=== PATIENT | female | born 1995 | race Caucasian/White ===

== ENCOUNTER 2019-10-05 20:53 | Emergency (ER) | payer SELFPAY ==
[~2019-10-05] VITALS: Ht 172.7 cm; Wt 72.1 kg
[2019-10-05 20:58] VITALS: BP 115/72
--- NOTE | 2019-10-05 21:24 | NUR ---
24 Y/O FEMALE PRESENTS TO ER WITH C/O OF CHEST PAIN S/P TAKING SECOND DOSE OF TOPOMAX X 45 MIN. PT STATES SHE STARTED TOPOMAX THIS MORNING AND HAD HER SECOND DOSE AROUND 1900 AFTER THAT SHE BEGAN TO HAVE CHEST PAIN, RIGHT SIDE FACE, AND LEG TINGLING, AND NUMBNESS, WITH SOME DIZZINESS, AND LIGHTHEADEDNESS. UPON ASSESSMENT 0/10 CHEST PAIN, VSS, EKG IS NSR, R/R EQUAL, AND UNLABORED, CAP REFILL <3 SEC, BILATERAL UPPER, AND LOWER EXTREMITY PULSES PALPATED, STRONG, AND REGULAR. PT DENIES SYNCOPE, HEADACHE, VISION CHANGES, FEVER, NAUSEA, VOMITING, DIARRHEA. LMP 09/21/19. SIDE RAIL X1, BED IN LOW POSITION, WILL CONTINUE TO MONITOR. ALLERGY: PENICILLIN, CLINDAMYCIN, COMPAZINE PMH: MIGRAINES
[2019-10-05 22:18] VITALS: BP 115/72
--- NOTE | 2019-10-05 22:18 | NUR ---
Patient discharged BY DR. RDZ with v/s stable. Written and verbal after care instructions given and explained. Patient verbalized understanding. Ambulatory with steady gait. All questions addressed prior to discharge BY DR. RDZ. Advised to follow up with PMD.
== END 2019-10-05 22:18 | disposition home or self-care (01) ==
LOC: MED 20:53
DX: F41.9 Anxiety disorder, unspecified (principal); R51 Headache; R20.2 Paresthesia of skin; Z88.0 Allergy status to penicillin; Z88.1 Allergy status to other antibiotic agents; Z88.8 Allergy status to other drugs, medicaments and biological substances
CPT/HCPCS: 81002; 81025; 93005; 99283

== ENCOUNTER 2019-10-13 20:49 | Emergency (ER) | payer SELFPAY ==
[~2019-10-13] VITALS: Ht 172.7 cm; Wt 69.9 kg
[2019-10-13 20:55] VITALS: BP 111/69
--- NOTE | 2019-10-13 21:02 | NUR ---
PT AMBULATED TO LOBBY TO A/W BED
--- NOTE | 2019-10-13 21:32 | NUR ---
Dr. Jacobson examining patient.
--- NOTE | 2019-10-13 21:55 | NUR ---
24 Y/O FEMALE C/O CHEST PAIN AROUND 7PM THAT WAS SHARP IN NATURE FOR A FEW SECONDS AND THEN WENT AWAY; AROUND 8PM PT'S LEFT ARM STARTED TO HAVE A SHARP AND DULL CONSTANT PAIN; DENIES N/V/D; SKIN IS PINK/WARM/DRY; AAOX4 WITH EVEN AND STEADY GAIT; HR EVEN AND REGULAR; PT DENIES ANY FEVER, SOB, OR COUGH AT THIS TIME; PATIENT STATES PAIN OF 6/10 AT THIS TIME; VSS; PATIENT POSITIONED FOR COMFORT IN CHAIR C PMH:PT DENIES ALLERGY: PCN/COMPAZINE/CLINDAMYCIN
--- NOTE | 2019-10-13 21:55 | NUR ---
PT TAKEN TO RAD VIA W/C
--- NOTE | 2019-10-13 22:00 | NUR ---
PT RETURNED FROM CT VIA W/C, STABLE, WILL CONTINUE TO MONITOR.
[2019-10-13 22:19] VITALS: BP 111/69
--- NOTE | 2019-10-13 22:19 | NUR ---
Patient discharged with v/s stable. Written and verbal after care instructions given and explained. Patient verbalized understanding. Ambulatory with steady gait. All questions addressed prior to discharge. Advised to follow up with PMD.
== END 2019-10-13 22:19 | disposition home or self-care (01) ==
LOC: MED 20:49
DX: R07.9 Chest pain, unspecified (principal); M79.602 Pain in left arm; Z88.0 Allergy status to penicillin; Z88.1 Allergy status to other antibiotic agents; Z88.8 Allergy status to other drugs, medicaments and biological substances
CPT/HCPCS: 71045; 93005; 99283